=== PATIENT | female | born 1960 | race Caucasian/White ===

== ENCOUNTER 2017-08-07 14:23 | Inpatient (IN) | payer OTHER ==
[~2017-08-07] VITALS: Ht 157.5 cm; Wt 57.2 kg
[2017-08-07] MEDS ORDERED: NICOTINE POLACRILEX 4 MG GUM-PK OF TEN BC PRN (16:00)
[2017-08-07] MEDS ORDERED: LORAZEPAM 1 MG TABLET PO PRN ×2 (16:00)
[2017-08-07] MEDS ORDERED: LORAZEPAM 2 MG/1 ML VIAL IM PRN (16:00)
[2017-08-07] MEDS ORDERED: MAG HYDROX/AL HYDROX/SIMETH 30 ML LIQUID UDC PO PRN (16:00)
[2017-08-07] MEDS ORDERED: MIRALAX 17 GM POWD.PACK PO PRN (16:00)
[2017-08-07] MEDS ORDERED: CLONIDINE HCL 0.1 MG TABLET PO PRN (16:00)
[2017-08-07] MEDS ORDERED: NICOTINE 14 MG/24HR PATCH TD PRN (16:00)
[2017-08-07] MEDS ORDERED: MAGNESIUM HYDROXIDE 30 ML LIQUID UDC PO PRN (16:00)
[2017-08-07] MEDS ORDERED: ONDANSETRON 4 MG/2 ML VIAL IM PRN (16:00)
[2017-08-07] MEDS ORDERED: LOPERAMIDE HCL 2 MG CAPSULE PO PRN ×2 (16:00)
[2017-08-07] MEDS ORDERED: ONDANSETRON ODT 4 MG TAB.RAPDIS SL PRN (16:00)
[2017-08-07] MEDS ORDERED: ACETAMINOPHEN 325 MG TABLET PO PRN (16:00)
[2017-08-07] MEDS ORDERED: IBUPROFEN 400 MG TABLET PO PRN (16:00)
[2017-08-07] MEDS ORDERED: diphenhydrAMINE 50 MG CAPSULE PO PRN (16:00)
--- NOTE | 2017-08-07 16:15 | NUR ---
ADMISSION ASSESSMENT: PATIENT IS A 56 YEAR OLD FEMALE ADMITTED TO [facility] ON 08/07/17 FOR A MEDICALLY SUPERVISED DETOX FROM ALCOHOL. PATIENT IS 5'2" AND IS 126 LBS ON STANDING SCALE, SKIN IS CLEAR, DRY AND INTACT, BODY SEARCH DONE AND NO CONTRABAND FOUND. PATIENT HAS A PCP BY THE NAME OF DR CRYSTAL GREWAL LOCATED IN [facility]. PATIENT STATES THAT SHE IS HERE BECAUSE " IM AN ALCOHOLIC, I HAD 13 YEARS SOBER ( ENDING IN 2013 ) AND I WANT TO BE SOBER AGAIN ". SHE STATES THAT THE PAST YEAR HAS BEEN DIFFICULT, LOSING JOBS, GETTING AND FAMILY MEMBERS DYING ( HER BROTHER) HAS MADE HER START TO CRAVE ALCOHOL AGAIN. HISTORY OF SUBSTANCE ABUSE: ALCOHOL ( WINE OR VODKA) 750-1500ML WINE OR 500ML VODKA EVERY DAY FOR THE PAST YEAR, LAST CONSUMED BEFORE ARRIVAL 750 ML WINE. 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 PATIENT HAS BEEN TO TREATMENT X1 IN THE PAST- [facility] [place] IN [facility] FOR 30 DAYS. HOME MEDS THAT THE PATIENT TAKES IS MERIPEX 0.5MG PO AT BEDTIME FOR RESTLESS LEGS SYNDROME. VITAL SIGNS, BP 130/68 HR 78 T 98 02SATS 99%. PATIENT STATES SHE SMOKES 1 PACK OF CIGARETTES PER DAY FOR THE LAST 20+ YEARS. PATIENT APPEARS MILDLY INTOXICATED AT THIS TIME AND PRESENTS WITH DIAPHORESIS, ANXIETY, DRY MOUTH AND TREMORS, CIWA ON ADMISSION 9. EDUCATED PATIENT ABOUT S/S OF WITHDRAWAL, RULES OF THE UNIT, GROUP THERAPY AND DISCHARGE PLANNING. WILL CONTINUE TO FOLLOW MD ORDERS.
[2017-08-07 16:38] LABS: *URINE HCG, QUAL NEGATIVE (NEGATIVE)
[2017-08-07 16:46] LABS: *AMPHETAMINE, URINE NEGATIVE (NEGATIVE); *BARBITURATE, URINE NEGATIVE (NEGATIVE); *CANNABINOID, URINE NEGATIVE (NEGATIVE); *COCCAINE, URINE NEGATIVE (NEGATIVE); *OPIATE, URINE NEGATIVE (NEGATIVE); *PHENCYCLIDINE SCREEN,URINE NEGATIVE (NEGATIVE)
[2017-08-07] MEDS ORDERED: THIAMINE HCL 200 MG/2 ML VIAL IM ONE (16:49)
[2017-08-07] MEDS ORDERED: mirapex PO (16:56)
[2017-08-07 17:00] VITALS: BP 112/74
[2017-08-07 18:11] LABS: BASOPHILS # (AUTO) 0.1 K/uL (0.0-8.0); BASOPHILS % (AUTO) 0.8 % (0.0-2.0); EOSINOPHILS % (AUTO) 0.3 % (0.0-7.0); HEMATOCRIT 45.4 % (31.2-41.9); HEMOGLOBIN 15.7 g/dL (10.9-14.3); LYMPHOCYTES # (AUTO) 1.8 K/uL (20.0-40.0); LYMPHOCYTES % (AUTO) 22.5 % (20.5-51.5); MEAN CORPUSCULAR HEMOGLOBIN 34.2 uug (24.7-32.8); MEAN CORPUSCULAR HGB CONC 35 g/dL (32.3-35.6); MEAN CORPUSCULAR VOLUME 99.3 fL (75.5-95.3); MONOCYTES # (AUTO) 0.4 K/uL (2.0-10.0); MONOCYTES % (AUTO) 5.4 % (0.0-11.0); NEUTROPHILS # (AUTO) 5.7 K/uL (1.8-8.9); PLATELET COUNT (AUTO) 183 K/uL (179-408); RED BLOOD CELL COUNT(AUTO) 4.58 MIL/uL (3.63-4.92)
[2017-08-07 18:24] LABS: BILIRUBIN,TOTAL 0.4 mg/dL (0.2-1.0); MAGNESIUM 1.8 mg/dL (1.8-2.4); POTASSIUM 4.1 mmol/L (3.5-5.1); TOTAL PROTEIN, SERUM 7.6 g/dL (6.4-8.2)
--- NOTE | 2017-08-07 19:26 | NUR ---
END OF SHIFT PATIENT IS A 56 YR OLD FEMALE ADMITTED TODAY TO [facility] FOR A MEDICALLY SUPERVISED WITHDRAWAL FROM ALCOHOL. PATIENT WILL START AN ATIVAN TAPER ON 08/08/17. PATIENT ARRIVED ON FLOOR AT 1600 TODAY. SHE HAD A FLUID INTAKE OF 800ML, 2VOIDS AND 0 BM. HER LAST CIWA WAS 9 @ 1600. PATIENTS WITHDRAWAL SYMPTOMS INCLUDE DIAPHORESIS, TREMORS AND ANXIETY. SHE HAS ALLERGIES TO PCN AND PAPER TAPE, IS FULL CODE AND ON A REGULAR DIET. CONTINUE TO FOLLOW MD PLAN OF CARE.
--- NOTE | 2017-08-07 19:27 | NUR ---
Start of shift note Received report from day shift nurse. Pt is a 56 yo female, A+Ox4, presenting to [facility] for ETOH withdrawal. Pt noted to be anxious, restless, agitated, and withdrawn. Pt has HX of Restless leg syndrome which will be monitored during shift. Pt is on 4 day Ativan taper to start tomorrow. Respirations even and unlabored. Will continue to monitor.
[2017-08-07 20:12] VITALS: BP 127/72
[2017-08-07] MEDS: PRAMIPEXOLE 0.5 MG PO SCH (20:44)
[2017-08-07] MEDS ORDERED: LORAZEPAM 1 MG TABLET PO SCH (21:00)
[2017-08-08] VITALS (7 sets, daily range): BP systolic 106–139; BP diastolic 64–89
--- NOTE | 2017-08-08 06:51 | NUR ---
End of shift note Pt was continuously noted to be restless, agitated, and anxious. Pt is on 4 day Ativan taper to start today. Pt remained in room for majority of shift except to go smoke on smoking patio and to get food from kitchen. Pt was not given any PRN medications during shift. Pt slept for a total of 8 HRS. Last CIWA: 8 @0400. Respirations even and unlabored. Will endorse to day shift nurse.
--- NOTE | 2017-08-08 07:45 | NUR ---
START OF SHIFT Endorse rcvd from ongoing nurse, client is sitting in bed, she avoids eye contact, a/o x 4, she presents with depressed mood, flat affect, tremors, and moist skin. She reports decrease appetite, restless legs, feelings of despair, and fatigue. Client denies any SI/HI. Encourage client to attend group therapy for skills to maintain sober. Encourage client to increase PO fluid as tolerated to maintain rehydration and facilitate detox. Client admitted for medically supervised withdrawal from alcohol. Client is schedule to start 4 day Ativan taper today @ 0900. Last CIWA 8 @ 0400. Client had an uneventful night, she slept 8 hrs. Call light within reach. Seizure precautions rendered
[2017-08-08] MEDS: MULTIVITAMINS,THERAPEUTIC TABLET PO SCH (08:26)
[2017-08-08] MEDS: LORAZEPAM 1 MG TABLET PO SCH ×3 (08:26→20:28)
[2017-08-08] MEDS: THIAMINE HCL 100 MG TABLET PO SCH (08:26)
[2017-08-08] MEDS: FOLIC ACID 1 MG TABLET PO SCH (08:26)
--- NOTE | 2017-08-08 08:26 | NUR ---
PPD Test administered to L forearm.
[2017-08-08] MEDS ORDERED: TUBERCULIN,PURIF.PROT.DERIV. 5 TU/0.1 ML TEST ID ONE (09:00)
--- NOTE | 2017-08-08 10:00 | NUR ---
notified of Lab results HIV reactive A
[2017-08-08] MEDS: CARBAMIDE PEROXIDE OTIC DROP 15 ML BOTTLE EACH EAR SCH ×2 (11:50→17:34)
--- NOTE | 2017-08-08 12:10 | NUR ---
Client presents with anxiety, agitation, tremors, clammy skin, nausea, headache, restless legs, and fatigue. CIWA 15. Client decline PRN Ativan, stating, "I am feeling very dizzy and groggy, I do not do well with medications, I am going to refuse the medication." Educate client on the risk of withdrawal-induced seizure and PRN Ativan for the management of withdrawal symptoms, but client still refused PRN Ativan.
--- NOTE | 2017-08-08 14:06 | NUR ---
Reassess PRN Ativan 1mg, client able to sit still, feels less anxious, CIWA 9. Will continue to monitor. Addendum: 08/08/17 at 1904 by OBI CHEN RN wrong time. ALDAIR 8
--- NOTE | 2017-08-08 15:06 | NUR ---
Client refused Ativan 2mg taper, stating, "Taking 2mg of Ativan is too much for me, my whole body feels weak, I feel groggy and dizzy. Why can't I just take 1mg?" Educate client on the risk of withdrawal-induced seizure and PRN Ativan for the management of breakthrough withdrawal symptoms, but client said, "I will only take 1mg, please." MD and CN notified. PRN Ativan 1mg administered for anxiety, agitation, tremors, clammy skin, nausea, headache, restless legs, and fatigue. CIWA 12. Will continue to monitor.
--- NOTE | 2017-08-08 15:38 | NUR ---
Therapist prompted client to attend group counseling at 3:30pm today and also daily. Client expressed interest in participating in activities and group counseling and stated she would attend today's group counseling session.
--- NOTE | 2017-08-08 16:06 | NUR ---
Reassess PRN Ativan 1mg, client able to sit still, feels less anxious, CIWA 8. Will continue to monitor.
--- NOTE | 2017-08-08 19:01 | NUR ---
END OF SHIFT Endorse client to incoming nurse, client is in room, a/o x 4, he continues to avoid eye contact, depressed mood, flat affect, tremors felt not observed, and moist skin, decrease appetite, restless legs, feelings of despair, and fatigue. Last CIWA 9 @ 1600. PRN Ativan 1mg for CIWA 12. Client refused Ativan 2mg taper @ 1500, MD notified. Client was not compliant with group therapy d/t withdrawal symptoms. Adequate PO fluid intake 3500mL, void x 7, stool x 2. Client consumes ~50% of meals. Call light within reach.
--- NOTE | 2017-08-08 19:11 | NUR ---
Start of shift note Received report from day shift nurse. Pt is a 56 yo female, A+Ox4, presenting to [facility] for ETOH withdrawal. Pt noted with anxiety, restlessness, and agitation. Pt is on 4 day Ativan taper, tolerated well. Pt has HX of restless leg syndrome which will be monitored during shift. Respirations even and unlabored. Will continue to monitor.
[2017-08-08] MEDS: PRAMIPEXOLE 0.5 MG PO SCH (20:29)
[2017-08-09 00:34] VITALS: BP 127/76
[2017-08-09 04:32] VITALS: BP 131/78
--- NOTE | 2017-08-09 06:46 | NUR ---
End of shift note Pt was continuously noted with anxiety, agitation, and restlessness. Pt remained in room for majority of shift except to get food from kitchen and to go smoke on smoking patio. Pt is on 4 day Ativan taper, tolerated well. Pt was not given any PRN medications during shift. Pt slept for a total of 9 HRS. Last CIWA: 8 @0400. Respirations even and unlabored. Will endorse to day shift nurse.
--- NOTE | 2017-08-09 07:20 | NUR ---
START OF SHIFT Pt is a 56 yr old female, AA&Ox4. Pt was admitted on 08/07/17 for ETOH withdrawal and is on 4 day Ativan taper as ordered. medication conor well. Received report from maintenance technician 2nd shift nurse. No PRN's were given during the night. Last CIWA score was 8 at 0400. Pt is c/o anxiety this morning but is able to cope with it. Skin is intact, warm and moist. Pt is on fall and seizure precautions. Call light is within reach. Will continue to monitor.
[2017-08-09 08:01] VITALS: BP 108/66
[2017-08-09 08:06] LABS: HEPATITIS B SURFACE AG Negative (Negative)
[2017-08-09] MEDS: LORAZEPAM 1 MG TABLET PO SCH ×3 (08:24→16:43)
[2017-08-09] MEDS: THIAMINE HCL 100 MG TABLET PO SCH (08:24)
[2017-08-09] MEDS: MULTIVITAMINS,THERAPEUTIC TABLET PO SCH (08:24)
[2017-08-09] MEDS: FOLIC ACID 1 MG TABLET PO SCH (08:24)
[2017-08-09] MEDS: CARBAMIDE PEROXIDE OTIC DROP 15 ML BOTTLE EACH EAR SCH (08:25)
[2017-08-09 12:00] VITALS: BP 143/86
[2017-08-09] MEDS ORDERED: HYDROXYZINE PAMOATE 25 MG CAPSULE PO PRN (12:45)
[2017-08-09 16:20] VITALS: BP 134/84
--- NOTE | 2017-08-09 17:02 | NUR ---
END OF SHIFT Pt is a 56 yr old female, AA&Ox4. Pt was admitted on 08/07/17 for ETOH withdrawal and is on 4 day Ativan taper as ordered. Medication conor well. Pt has been cooperative with medication regimen and plan of care. Pt was offered to attend group but pt refused. Pt was observed very emotional and was noted with episodes of crying. Pt was noted with increase anxiety m/b difficulty staying still. Skin is intact, warm and moist to touch. No PRNs were given during the day. Last CIWA score was 10. Pt was encouraged increase fluid for hydration. Pt is on fall and seizure precautions. Call light is within reach. Endorsed to night time nanny nurse to continue with care.
--- NOTE | 2017-08-09 19:11 | NUR ---
Start of shift note Received report from day shift nurse. Pt is a 56 yo female, A+Ox4, presenting to [facility] for ETOH withdrawal. Pt noted with agitation, restlessness, anxiety, and flat/depressed demeanor. Pt has HX of Restless leg syndrome which will be monitored during shift. Pt is on 4 day Ativan taper, tolerated well. Respirations even and unlabored. Will continue to monitor.
[2017-08-09 20:17] VITALS: BP 126/82
[2017-08-09] MEDS: PRAMIPEXOLE 0.5 MG PO SCH (20:48)
[2017-08-09] MEDS ORDERED: LORAZEPAM 1 MG TABLET PO SCH (21:00)
[2017-08-10 00:34] VITALS: BP 123/78
[2017-08-10 04:25] VITALS: BP 128/84
--- NOTE | 2017-08-10 07:02 | NUR ---
End of shift note Pt was continuously noted with agitation, anxiety, flat/depressed demeanor, and restlessness. Pt remained in room for majority of shift except to get food from kitchen and to go smoke on smoking patio. Pt is on 4 day Ativan taper, tolerated well. Pt was not given any PRN medications during shift. Pt slept for a total of 8 HRS. Last CIWA: 8 @0400. Respirations even and unlabored. Will continue to monitor.
--- NOTE | 2017-08-10 07:30 | NUR ---
Start of Shift Notes: Received patient in her room. Awake, alert, oriented x 4. She appears anxious. Denies S/i or H/I. No AV hallucinations noted. Redirection provided with help. Patient states "I just want to go smoke." Smoking was discouraged. Patient is a 56 year old female admitted for ETOH withdrawal who is currently on a a 4-day Ativan taper as ordered. Educated patient on her current plan of care for the day and her medication regimen. Encouraged oral fluid intake and encouraged group participation to learn new skills to prevent relapse. Slept for 8 hours. Last CIWA 8. All needs met and attended. Will continue to monitor.
[2017-08-10 08:00] VITALS: BP 111/67
[2017-08-10] MEDS: MULTIVITAMINS,THERAPEUTIC TABLET PO SCH (08:16)
[2017-08-10] MEDS: FOLIC ACID 1 MG TABLET PO SCH (08:16)
[2017-08-10] MEDS: THIAMINE HCL 100 MG TABLET PO SCH (08:16)
[2017-08-10] MEDS: LORAZEPAM 1 MG TABLET PO SCH ×3 (08:16→20:26)
[2017-08-10 12:00] VITALS: BP 139/89
[2017-08-10 16:00] VITALS: BP 111/72
--- NOTE | 2017-08-10 19:06 | NUR ---
End of Shift Notes: Patient continues to be 4-day Ativan taper as ordered to manage withdrawal symptoms related to ETOH. VS monitored closely. No significant abnormalities noted. Withdrawal symptoms were closely monitored. Initial CIWA 14, patient presented with anxiety, agitation, and paresthesia. Last CIWA 11. Per patient, Ativan has been effective in reducing her withdrawal symptoms. Appetite good. Participated in group and activities. Cooperative with staff and care. All needs met and attended. Will continue to monitor closely.
[2017-08-10 20:00] VITALS: BP 117/78
--- NOTE | 2017-08-10 20:00 | NUR ---
START OF SHIFT NOTE RECEIVED REPORT FROM DAY SHIFT NURSE. PATIENT IS A 56 YEAR OLD FEMALE ADMITTED FOR ETOH WITHDRAWAL. PATIENT CONTINUE ON ATIVAN TAPER. PATIENT DID NOT REQUIRE PRN MEDICATION. LAST CIWA 11. RECEIVED PATIENT ALERT AND ORIENTED X 4. PATIENT PRESENTED WITH ANXIETY, RESTLESSNESS, ANGRY, SWEATING AND BILATERAL HAND TREMOR. RELAXATION TECHNIQUE PROVIDED AND POSITIVE ENCOURAGEMENT PROVIDED. SAFETY MEASURES IN PLACE. CALL LIGHT IN REACH. WILL CONTINUE TO MONITOR.
[2017-08-10] MEDS: PRAMIPEXOLE 0.5 MG PO SCH (20:26)
--- NOTE | 2017-08-11 | NUR ---
CIWA DEFERRED PATIENT SLEEPING. RESPIRATION EVEN AND UNLABORED. VS REFUSED . SAFETY MEASURES IN PLACE. WILL CONTINUE TO MONITOR
--- NOTE | 2017-08-11 04:00 | NUR ---
CIWA DEFERRED PATIENT SLEEPING. RESPIRATION EVEN AND UNLABORED. VS REFUSED . SAFETY MEASURES IN PLACE. WILL CONTINUE TO MONITOR
--- NOTE | 2017-08-11 07:20 | NUR ---
END OF SHIFT NOTE PATIENT SLEPT 8 HOURS. FLUID INTAKE 1,355 ML. VOIDED X 3. NO BM. MONITORED PATIENT THROUGHOUT SHIFT. PATIENT CONTINUE ON ATIVAN TAPER, TOLERATED WELL AND NO ADVERSE REACTION. PATIENT WAS PRESENTED WITH ANXIETY, RESTLESSNESS, ANGRY, SWEATING AND BILATERAL HAND TREMOR BEGINNING OF SHIFT. RELAXATION TECHNIQUE PROVIDED AND POSITIVE ENCOURAGEMENT PROVIDED. PATIENT DID NOT REQUIRE PRN MEDICATION. SAFETY MEASURES IN PLACE. CALL LIGHT IN REACH. WILL CONTINUE TO MONITOR. LAST CIWA 7.
--- NOTE | 2017-08-11 07:45 | NUR ---
START OF SHIFT Rcvd endorse from ongoing nurse, client is in bed, she is a/o x 4, she presents with depressed mood, flat affect, avoidant gaze, dry lips, and tremors. Client reports anxiety, sense of panic, headache, restless legs, decreased appetite, and fatigue. Encourage client to increase PO fluid to maintain hydration and facilitate detox. Encourage client to attend group therapy to learn skills to maintain sober. Client had an uneventful night, she slept 7 hrs. Last CIWA 7 @ 2000. 4 day Ativan taper (Day 4). Seizure precautions rendered. Call light within reach.
[2017-08-11 08:07] VITALS: BP 108/66
[2017-08-11] MEDS: MULTIVITAMINS,THERAPEUTIC TABLET PO SCH (08:22)
[2017-08-11] MEDS: THIAMINE HCL 100 MG TABLET PO SCH (08:22)
[2017-08-11] MEDS: FOLIC ACID 1 MG TABLET PO SCH (08:22)
[2017-08-11] MEDS ORDERED: LORAZEPAM 1 MG TABLET PO SCH ×2 (09:00)
[2017-08-11 12:55] VITALS: BP 115/77
[2017-08-11 16:52] VITALS: BP 110/74
[2017-08-11] MEDS ORDERED: IBUP-1953 PO (18:46)
[2017-08-11] MEDS ORDERED: HYDR-3895 PO (18:46)
[2017-08-11] MEDS ORDERED: DIPH50CA37 PO (18:46)
[2017-08-11] MEDS ORDERED: CLON0.1T14 PO (18:46)
--- NOTE | 2017-08-11 19:02 | NUR ---
END OF SHIFT Endorse client to incoming nurse, client is in bed, she is a/o x 4, she continues to present with depressed mood, flat affect, avoidant gaze, tremor felt not observed, restless legs, decreased appetite, and fatigue. Client is scheduled for discharge tomorrow to [facility], she completed 4 day Ativan taper. Last CIWA 5 @ 1600. Client was compliant with group therapy. Adequate PO fluid intake 2210mL, void x 8, stool x 1. Client consumes ~75% of meals. Call light within reach.
--- NOTE | 2017-08-11 19:30 | NUR ---
Start of Shift Pt is a 56 y/o female admitted 08/07/17 for medically managed withdrawal/detox from ETOH. Patient is found sitting in bed watching tv. Alert and oriented x 4, answeres questions and responds appropriately. Pt to be d/c'd 08/12/17 to IOP, pt to gather more information on following morning. Evening meds reviewed with pt requesting Benedryl 50mg PO for insomnia. Will monitor patient and promptly attend to all needs
[2017-08-11 20:00] VITALS: BP 115/73
[2017-08-11] MEDS: PRAMIPEXOLE 0.5 MG PO SCH (21:13)
--- NOTE | 2017-08-11 21:16 | NUR ---
PRN Med Benedryl 50mg PO given for insomnia. Will continue to monitor, reassessing in 1 hour, and promptly attending to all pt needs/
--- NOTE | 2017-08-11 22:16 | NUR ---
PRN Reassessment Benedryl 50mg PO given 1 hour prior for insomnia. At present patient sleeping, RR 14, even and nonlabored. Will continue to monitor, promptly attending to all pt needs.
--- NOTE | 2017-08-12 | NUR ---
VS's CIWA Deferred Midnight VS's and CIWA deferred r/t pt sleeping/refused. RR 14, even and nonlabored. Will continue to monitor and promptly attend to all pt needs
--- NOTE | 2017-08-12 04:00 | NUR ---
VS's CIWA Deferred 0400 VS's and CIWA deferred r/t pt sleeping/refused. RR 14, even and nonlabored. Will continue to monitor and promptly attend to all pt needs
--- NOTE | 2017-08-12 06:49 | NUR ---
End of Shift Pt is a 56 y/o female admitted 08/07/17 for medically managed withdrawal/detox from ETOH. Pt angry and demanding at times. Patient to be d/c'd 08/12/17. PRN'S for shift included: Benedryl 50mg PO for insomnia. Last CIWA was 5 at 1999. Patient slept for 8 hours, with 1000 mls intake,4 voids and 0 BM's. Will monitor patient and promptly attend to all needs until endorsement given to oncoming day nurse.
--- NOTE | 2017-08-12 07:52 | NUR ---
START OF SHIFT: RECEIVED PT A/O X 4. SHE PRESENTS WITH ANXIOUS MOOD AND CONGRUENT AFFECT. SHE REPORTS SOME ANXIETY AND IRRITABILITY BUT VERBALLY EXPRESSES MOTIVATION TOWARD RECOVERY PROCESS.CIWA 4 WILL MEDICATE ORDERED AND CONTINUE WITH DISCHARGE PROCESS.
[2017-08-12 08:00] VITALS: BP 118/84
[2017-08-12] MEDS: THIAMINE HCL 100 MG TABLET PO SCH (08:07)
[2017-08-12] MEDS: MULTIVITAMINS,THERAPEUTIC TABLET PO SCH (08:07)
[2017-08-12] MEDS: FOLIC ACID 1 MG TABLET PO SCH (08:07)
--- NOTE | 2017-08-12 08:56 | NUR ---
DISCHARGE: PT IS A/O X 4. SHE DENIES S/I AND H/I. SHE STATES SHE FEELS ENTHUSIASTIC TOWARD RECOVERY. BELONGINGS RETURNED. EDUCATED PT ON DISCHARGE MEDS AND INSTRUCTIONS. PT EXPRESSED VERBAL UNDERSTANDING OF EDUCATION . INSPECTOR PL[employer] SEAM ESCORTED PT TO [facility] WHERE SHE WAS TRANSPORTED BY FRIEND HOME TO ATTEND 12 STEP MEETINGS AND IOP AT 0840.
== END 2017-08-12 08:40 | disposition home or self-care (01) | DRG 895 ==
LOC: SRC 14:49
PROVIDERS: ADMIT Internal Medicine; ATTEND Internal Medicine
PROC: HZ2ZZZZ Detoxification Services for Substance Abuse Treatment (ICD-10-PCS; principal; 2017-08-07)
PROC: HZ31ZZZ Individual Counseling for Substance Abuse Treatment, Behavioral (ICD-10-PCS; 2017-08-08)
PROC: HZ41ZZZ Group Counseling for Substance Abuse Treatment, Behavioral (ICD-10-PCS; 2017-08-08)
DX: F10.230 Alcohol dependence with withdrawal, uncomplicated (principal); I15.9 Secondary hypertension, unspecified; E78.5 Hyperlipidemia, unspecified; F17.210 Nicotine dependence, cigarettes, uncomplicated; Y90.3 Blood alcohol level of 60-79 mg/100 ml; G25.81 Restless legs syndrome; Z80.1 Family history of malignant neoplasm of trachea, bronchus and lung; Z80.0 Family history of malignant neoplasm of digestive organs; Z80.8 Family history of malignant neoplasm of other organs or systems; Z81.1 Family history of alcohol abuse and dependence
CPT/HCPCS: 36415; 70030-TC; 80307; 83735; 84703; 85025; 86592; 86705; 86803; 87340; 87536; 87806; G0480; Q0163